=== PATIENT | male | born 1950 | race Asian ===

== ENCOUNTER 2016-11-25 20:16 | Emergency (ER) | payer MEDICARE ==
[~2016-11-25 20:16] MED LIST: Iopamidol 370 76% 100 ML VIAL ONE
[2016-11-25] MEDS ORDERED: Clindamycin/D5W 300 MG/50 ML BAG ONE ×2 (20:38→20:39)
[2016-11-25 21:20] LABS: #Basophils 0.1 thou/uL (0.0-0.2); #Eosinphils 0.5 thou/uL (0.0-0.7); #Lymphocytes 2.6 thou/uL (1.20-3.40); #Monocytes 0.8 thou/uL (0.11-0.59); #Neutrophils 5.6 thou/uL (1.40-6.50); %Eosinophils 5.3 % (0.0-10.0); %Lymphocytes 26.7 % (21.0-51.0); %Monocytes 8.1 % (0.0-10.0); %Neutrophils 58.9 % (42.0-75.0); Hemoglobin 14.1 g/dL (14.0-18.0); Mean Corpuscular HGB CONC 33.3 g/dL (32.0-36.0); Mean Corpuscular Hemoglobin 30.1 pg (27.0-31.0); Mean Corpuscular Volume 90.3 fl (80.0-94.0); Mean Platelet Volume 7.4 fL (7.4-10.4); Platelet Count 241 thou/uL (130-400); RBC Distribution Width 12.1 % (11.5-14.5); White Blood Cell (WBC) Count 9.5 thou/uL (4.8-10.8)
[2016-11-25 21:23] LABS: ALT (SGPT) 22 U/L (8-55); AST (SGOT) 28 U/L (5-34); Albumin 4.1 g/dL (3.4-4.8); Alkaline Phosphatase 58 U/L (40-150); Anion Gap 21 mmol/L (10-20); BUN (Urea Nitrogen) 17 mg/dL (8.4-25.7); Bilirubin, Total 0.6 mg/dL (0.2-1.2); Calc. Creatinine Clearance 0 mL/min (70-130); Calcium 9.3 mg/dL (7.8-10.44); Carbon Dioxide 25 mmol/L (23-31); Chloride 95 mmol/L (98-107); Estimated GFR-MDRD 75; Globulin 3.2 g/dL (2.4-3.5); Glucose 103 mg/dL (80-115); Potassium 3.6 mmol/L (3.5-5.1); Protein, Total 7.3 g/dL (5.8-8.1); Sodium 137 mmol/L (136-145)
--- NOTE | 2016-11-25 22:24 | CT ---
CT FACIAL BONES WITH IV CONTRAST: Date: 11-25-16 Provided Clinical History: Left jaw pain. FINDINGS: There is a rim enhancing fluid collecting measuring at least 4.7 x 1.3 cm in greatest transverse dim ension at the angle of the mandible and extending towards the mandibular symphysis. This presumably reflects a periodontal abscess. Subtle erosive change involves the superficial aspect of the adjace nt anterior mandible to the left of midline. There is a mucous retention cyst in the right maxillary sinus. The visualized paranasal sinuses appear otherwise clear. The globes and orbital contents brad ear unremarkable with the exception of a calcification involving the medial aspect of the right glob e. The visualized intracranial contents appear unremarkable. IMPRESSION: 1. Findings compatible with periodontal abscess adjacent to the anterior left mandible with associat ed probable osteomyelitis involving the adjacent left mandible. 2. Small calcification involving the right globe, the etiology and significance of which is uncertai n. Non-emergent ophthalmology consultation is recommended. POS: [facility]
== END 2016-11-25 22:18 | disposition home or self-care (01) ==
LOC: MADERS 20:16
DX: K05.219 Aggressive periodontitis, localized, unspecified severity (principal); M27.2 Inflammatory conditions of jaws; I10 Essential (primary) hypertension; Z79.899 Other long term (current) drug therapy
CPT/HCPCS: 36415; 70487; 80053; 85025; 87040; 96365; J3490

== ENCOUNTER 2017-01-04 23:36 | Emergency (ER) | payer MEDICARE ==
[2017-01-04] MEDS ORDERED: Aspirin 325 MG TAB ONE (23:57)
[2017-01-05 00:24] LABS: PTT 29.7 SEC (22.9-36.1); Prothrombin Time 13.2 SEC (12.0-14.7)
[2017-01-05 00:27] LABS: ALT (SGPT) 20 U/L (8-55); AST (SGOT) 24 U/L (5-34); Albumin 3.8 g/dL (3.4-4.8); Alkaline Phosphatase 47 U/L (40-150); Anion Gap 14 mmol/L (10-20); BUN (Urea Nitrogen) 24 mg/dL (8.4-25.7); Bilirubin, Total 0.3 mg/dL (0.2-1.2); CK (CPK) 122 U/L (30-200); Calc. Creatinine Clearance 0 mL/min (70-130); Calcium 8.5 mg/dL (7.8-10.44); Carbon Dioxide 27 mmol/L (23-31); Chloride 99 mmol/L (98-107); Estimated GFR-MDRD 87; Globulin 3.2 g/dL (2.4-3.5); Glucose 125 mg/dL (80-115); Magnesium 2.3 mg/dL (1.6-2.6); Potassium 3.9 mmol/L (3.5-5.1); Sodium 136 mmol/L (136-145); Troponin I Less than 0.010 ng/mL (< 0.028)
[2017-01-05 00:33] LABS: #Basophils 0.1 thou/uL (0.0-0.2); #Eosinphils 0.5 thou/uL (0.0-0.7); #Lymphocytes 3.1 thou/uL (1.20-3.40); #Monocytes 0.6 thou/uL (0.11-0.59); #Neutrophils 3.6 thou/uL (1.40-6.50); %Basophils 1.1 % (0.0-1.0); %Eosinophils 6.4 % (0.0-10.0); %Monocytes 7.1 % (0.0-10.0); %Neutrophils 46.4 % (42.0-75.0); Hemoglobin 12.6 g/dL (14.0-18.0); Mean Corpuscular HGB CONC 33.4 g/dL (32.0-36.0); Mean Corpuscular Hemoglobin 30.4 pg (27.0-31.0); Mean Platelet Volume 7.1 fL (7.4-10.4); Platelet Count 210 thou/uL (130-400); RBC Distribution Width 12.7 % (11.5-14.5); Red Blood Cell (RBC) Count 4.14 mill/uL (4.70-6.10); White Blood Cell (WBC) Count 7.8 thou/uL (4.8-10.8)
--- NOTE | 2017-01-05 07:23 | RAD ---
CHEST 1 VIEW: Date: 01/04/17 HISTORY: Chest pain. COMPARISON: None. FINDINGS: Atherosclerosis of aorta. Normal cardiac silhouette. Pulmonary vessels and hilum are normal. No mass es or consolidation. No pneumothorax. No osseous abnormalities. Nonspecific density projects over th e anterolateral right 2nd rib/mid right clavicle. Correlate for possible foreign body versus bone is land. IMPRESSION: 1. Radiopaque density as above. 2. Atherosclerosis. 3. No acute cardiopulmonary process. POS: [facility]
== END 2017-01-05 06:47 | disposition home or self-care (01) ==
LOC: MADERS 23:36
DX: R00.2 Palpitations (principal); I10 Essential (primary) hypertension; Z87.891 Personal history of nicotine dependence; Z79.899 Other long term (current) drug therapy
CPT/HCPCS: 36415; 71010; 80053; 82550; 82553; 83735; 83880; 84484; 85025; 85610; 85730; 93005; 94760

== ENCOUNTER 2019-06-19 09:36 | Emergency (ER) | payer MEDICARE ==
[2019-06-19] MEDS ORDERED: Dexamethasone 4 MG TAB ONE (10:09)
== END 2019-06-19 10:30 | disposition home or self-care (01) ==
LOC: MADERS 09:36
DX: L50.0 Allergic urticaria (principal); I10 Essential (primary) hypertension; Z79.899 Other long term (current) drug therapy; Z87.891 Personal history of nicotine dependence
CPT/HCPCS: 99283; J8540

== ENCOUNTER 2019-09-28 08:34 | Outpatient (CLI) | payer MEDICARE ==
[2019-09-28 09:07] LABS: #Basophils 0.1 thou/uL (0.0-0.2); #Eosinphils 0.6 thou/uL (0.0-0.7); #Monocytes 0.5 thou/uL (0.11-0.59); #Neutrophils 4.6 thou/uL (1.40-6.50); %Eosinophils 7.8 % (0.0-10.0); %Lymphocytes 26.2 % (21.0-51.0); %Monocytes 5.9 % (0.0-10.0); %Neutrophils 59.2 % (42.0-75.0); Hemoglobin 13.6 g/dL (14.0-18.0); Mean Corpuscular HGB CONC 31.2 g/dL (32.0-36.0); Mean Corpuscular Hemoglobin 28.8 pg (27.0-31.0); Mean Corpuscular Volume 92.4 fL (78.0-98.0); Mean Platelet Volume 6.6 fL (7.4-10.4); Platelet Count 252 thou/uL (130-400); RBC Distribution Width 12.3 % (11.5-14.5); Red Blood Cell (RBC) Count 4.73 mill/uL (4.70-6.10); White Blood Cell (WBC) Count 7.7 thou/uL (4.8-10.8)
[2019-09-28 09:19] LABS: ALT (SGPT) 21 U/L (8-55); AST (SGOT) 24 U/L (5-34); Albumin 4.1 g/dL (3.4-4.8); Alkaline Phosphatase 52 U/L (40-110); Anion Gap 17 mmol/L (10-20); BUN (Urea Nitrogen) 19 mg/dL (8.4-25.7); Bilirubin, Total 0.5 mg/dL (0.2-1.2); Calc. Creatinine Clearance 0 mL/min (70-130); Calcium 8.9 mg/dL (7.8-10.44); Carbon Dioxide 25 mmol/L (23-31); Chloride 100 mmol/L (98-107); Cholesterol 181 mg/dl (< 200 Desired); Estimated GFR-MDRD 86; Glucose 94 mg/dL (80-115); HDL Cholesterol 60 mg/dL (>60 Neg Risk); LDL Cholesterol, Calculated 96 mg/dL; Potassium 3.8 mmol/L (3.5-5.1); Protein, Total 7.1 g/dL (5.8-8.1); Sodium 138 mmol/L (136-145); Triglycerides 126 mg/dL (Less than 150)
== END 2019-09-28 08:35 | disposition home or self-care (01) ==
LOC: MADLAB 08:34
PROVIDERS: ATTEND Family Medicine
DX: E78.5 Hyperlipidemia, unspecified (principal); D64.9 Anemia, unspecified
CPT/HCPCS: 36415; 80053; 80061; 85025

== ENCOUNTER 2019-12-20 03:15 | Emergency (ER) | payer MEDICARE ==
[2019-12-20 03:45] LABS: #Basophils 0.1 thou/uL (0.0-0.2); #Eosinphils 0.5 thou/uL (0.0-0.7); #Lymphocytes 2.1 thou/uL (1.20-3.40); #Monocytes 0.6 thou/uL (0.11-0.59); %Basophils 0.8 % (0.0-1.0); %Eosinophils 5.5 % (0.0-10.0); %Lymphocytes 25.7 % (21.0-51.0); Hemoglobin 13.8 g/dL (14.0-18.0); Mean Corpuscular HGB CONC 31.6 g/dL (32.0-36.0); Mean Corpuscular Hemoglobin 28.4 pg (27.0-31.0); Mean Corpuscular Volume 89.9 fL (78.0-98.0); Mean Platelet Volume 6.7 fL (7.4-10.4); Platelet Count 270 thou/uL (130-400); RBC Distribution Width 11.9 % (11.5-14.5); Red Blood Cell (RBC) Count 4.85 mill/uL (4.70-6.10); White Blood Cell (WBC) Count 8.2 thou/uL (4.8-10.8)
[2019-12-20 03:48] LABS: INR-International Normal Ratio 1.4; PTT 42.2 sec (22.9-36.1); Prothrombin Time 17.5 sec (12.0-14.7)
[2019-12-20] MEDS ORDERED: Diltiazem 125 MG/25 ML ONE (03:48)
[2019-12-20] MEDS ORDERED: Sodium Chloride 0.9% 100 ML ONE (03:48)
[2019-12-20 03:58] LABS: ALT (SGPT) 22 U/L (8-55); AST (SGOT) 23 U/L (5-34); Albumin 4.1 g/dL (3.4-4.8); Alkaline Phosphatase 50 U/L (40-110); Anion Gap 13 mmol/L (10-20); BUN (Urea Nitrogen) 19 mg/dL (8.4-25.7); Bilirubin, Total 0.3 mg/dL (0.2-1.2); CK (CPK) 138 U/L (30-200); Calc. Creatinine Clearance 0 mL/min (70-130); Calcium 8.5 mg/dL (7.8-10.44); Carbon Dioxide 28 mmol/L (23-31); Chloride 96 mmol/L (98-107); Estimated GFR-MDRD 82; Glucose 129 mg/dL (80-115); Potassium 3.4 mmol/L (3.5-5.1); Protein, Total 7.1 g/dL (5.8-8.1); Sodium 134 mmol/L (136-145)
[2019-12-20] MEDS ORDERED: Aspirin Chewable 81 MG TAB ONE (04:02)
--- NOTE | 2019-12-20 07:51 | RAD ---
XR Chest 1 View Portable History: Chest palpitations Comparison: Radiograph December 2016 Findings: Mild left basilar atelectasis. No confluent airspace consolidation, pneumothorax or effusio n. Heart size upper limits of normal. No acute osseous abnormality. Impression: No acute intrathoracic abnormality
== END 2019-12-20 05:24 | disposition short-term general hospital (02) ==
LOC: MADERS 03:15
DX: I48.91 Unspecified atrial fibrillation (principal); I10 Essential (primary) hypertension; Z87.891 Personal history of nicotine dependence; Z79.899 Other long term (current) drug therapy; Z79.01 Long term (current) use of anticoagulants; Z79.82 Long term (current) use of aspirin
CPT/HCPCS: 71045; 80053; 82550; 84443; 84484; 85025; 85610; 85730; 93005; 96365; 96376; J3490